=== PATIENT | male | born 1945 | race Caucasian/White ===

== ENCOUNTER 2018-07-31 05:10 | Inpatient (IN) | payer OTHER ==
[~2018-07-31] VITALS: Ht 157.5 cm; Wt 76.2 kg
--- NOTE | 2018-07-31 07:30 | NUR ---
MS RN NOTES PATIENT DIRECT ADMIT FROM [facility], ARRIVED VIA STRETCHER. REPORT RECEIVED FROM DARYA CARL. PATIENT AWAKE, ALERT AND ORIENTED X 4, VERBALLY RESPONSIVE AND RESPONDS TO VERBAL AND TACTILE STIMULI. NO ACUTE DISTRESS AT THIS TIME. NO CHANGES IN LOC. WITH CO FEELING DISCOMFORT IN HIS INNER RECTUM. SKIN ASSESSMENT DONE, NO REDNESS OR SWELLING NOTED ON RECTAL AREA. PATIENT ORIENTED TO UNIT, STAFF, PLAN OF CARE AND VERBALIZED UNDERSTANDING. DR DARLING MADE AWARE OF PATIENT ARRIVAL. WILL CONTINUE TO MONITOR. BED LOCKED AND IN LOW POSITION. BILATERAL UPPER SIDE RAILS UP AND LOCKED. CALL LIGHT WITHIN EASY REACH
[2018-07-31 08:00] VITALS: BP 94/60
[2018-07-31] MEDS ORDERED: MAG HYDROX/AL HYDROX/SIMETH 30 ML UDC PO PRN (12:00)
[2018-07-31] MEDS ORDERED: ZOLPIDEM TARTRATE 5 MG TABLET PO PRN (12:00)
[2018-07-31] MEDS ORDERED: MAGNESIUM HYDROXIDE 30 ML UDC PO PRN (12:00)
[2018-07-31] MEDS ORDERED: Z GUARD REMEDY 2 OZ OINT TP PRN (12:00)
[2018-07-31] MEDS ORDERED: HYDROCODONE/APAP 5/325MG 1 EACH TABLET PO PRN (12:00)
[2018-07-31] MEDS ORDERED: ONDANSETRON HCL/PF 4 MG/2 ML VIAL IVP PRN (12:00)
[2018-07-31] MEDS ORDERED: ACETAMINOPHEN 325 MG TABLET PO PRN (12:00)
[2018-07-31] MEDS: METRONIDAZOLE 500MG/ NS 100ML 500 MG in PREMIX 1 EA IV SCH ×3 (13:15→23:18)
[2018-07-31] MEDS: CIPROFLOXACIN IV RTU 400 MG in PREMIX 1 EA IV SCH (14:40)
[2018-07-31 16:00] VITALS: BP 95/58
--- NOTE | 2018-07-31 16:40 | NUR ---
MS RN NOTES PATIENT REPORTS HAVING BOWEL MOVEMENT EARLIER THIS AFTERNOON, ADDED THAT HE NOTED A SMALL AMOUNT OF PUS ON HIS STOOL. VERBALIZED THAT HE ALREADY FLUSHED AND IS NOT ABLE TO SHOW IT TO NURSING STAFF. DENIES BLEEDING AT THIS TIME. WILL CONTINUE TO MONITOR
--- NOTE | 2018-07-31 18:27 | NUR ---
MS RN NOTES PATIENT RESTING INSIDE ROOM. AWAKE, ALERT AND ORIENTED, VERBALLY RESPONSIVE AND RESPONDS TO VERBAL AND TACTILE STIMULI. NO ACUTE DISTRESS NOTED AT THIS TIME. DENIES ANY PAIN OR DISCOMFORT. PATIENT KEPT CLEAN, DRY AND COMFORTABLE. IV INTACT AND PATENT. WILL ENDORSE TO INCOMING SHIFT FOR RENETTA. BED LOCKED AND IN LOW POSITION. BILATERAL UPPER SIDE RAILS UP AND LOCKED. CALL LIGHT WITHIN EASY REACH
--- NOTE | 2018-07-31 19:30 | NUR ---
MS RN NOTE: PATIENT RESTING IN BED, NO ACUTE DISTRESS NOTED, FAMILY AT BEDSIDE. BREATHING EVEN AND UNLABORED, NO SOB NOTED. IV TO RAC IN PLACE. BED LOCKED AND IN LOWEST POSITION, CALL LIGHT IN REACH. WILL CONTINUE TO MONITOR.
[2018-07-31 20:00] VITALS: BP 105/59
[2018-08-01] MEDS: CIPROFLOXACIN IV RTU 400 MG in PREMIX 1 EA IV SCH ×2 (01:57→13:09)
--- NOTE | 2018-08-01 03:00 | NUR ---
MS RN NOTE: PATIENT SLEEPING IN BED, NO ACUTE DISTRESS NOTED. BREATHING EVEN AND UNLABORED, NO SOB NOTED. BED LOCKED AND IN LOWEST POSITION, CALL LIGHT IN REACH. WILL CONTINUE TO MONITOR.
[2018-08-01] MEDS: METRONIDAZOLE 500MG/ NS 100ML 500 MG in PREMIX 1 EA IV SCH ×4 (05:31→23:04)
--- NOTE | 2018-08-01 06:05 | NUR ---
MS RN NOTE: PATIENT RESTING IN BED, NO ACUTE DISTRESS NOTED, FAMILY AT BEDSIDE. BREATHING EVEN AND UNLABORED, NO SOB NOTED. IV TO RAC IN PLACE. BED LOCKED AND IN LOWEST POSITION, CALL LIGHT IN REACH. WILL ENDORSE TO DAY NURSE TO CONTINUE WITH PLAN OF CARE.
[2018-08-01 06:16] LABS: BASOPHILS % (AUTO) 0.6 % (0.0-2.0); HEMATOCRIT 42 % (39-51); HEMOGLOBIN 14.5 g/dL (13.5-17.5); LYMPHOCYTES # (AUTO) 1.5 /CMM (0.8-4.8); LYMPHOCYTES % (AUTO) 21.7 % (20.0-44.0); MEAN CORPUSCULAR HGB CONC 35 g/dl (31.0-36.0); MEAN CORPUSCULAR VOLUME 91 fL (80-96); MONOCYTES # (AUTO) 0.5 /CMM (0.1-1.30); MONOCYTES % (AUTO) 7.3 % (2.0-12.0); NEUTROPHILS # (AUTO) 4.6 /CMM (1.8-8.9); NEUTROPHILS % (AUTO) 67.4 % (43.0-81.0); PLATELET COUNT (AUTO) 215 /CMM (150-450); RED BLOOD CELL COUNT(AUTO) 4.57 MIL/uL (4.5-6.0); WHITE BLOOD COUNT (AUTO) 6.9 K/uL (4.3-11.0)
[2018-08-01 06:40] LABS: CHOLESTEROL 97 mg/dL (<200); HDL CHOLESTEROL 41 mg/dL (40-60); LDL 57 mg/dL (0-99); TRIGLYCERIDES 41 mg/dL (30-150)
[2018-08-01 06:46] LABS: CALCIUM, SERUM 8.2 mg/dL (8.5-10.1); CARBON DIOXIDE 26 mmol/L (21-32); CHLORIDE 107 mmol/L (98-107); CREATININE 0.9 mg/dL (0.6-1.3); GLUCOSE 120 mg/dL (74-106); MAGNESIUM 1.8 mg/dL (1.8-2.4); POTASSIUM 3.2 mmol/L (3.5-5.1); SODIUM SERUM 143 mmol/L (136-145); UREA NITROGEN, BLOOD 11 mg/dL (7-18)
--- NOTE | 2018-08-01 07:54 | NUR ---
MS RN NOTES PATIENT RECEIVED RESTING INSIDE ROOM. SLEEPING, EASILY AROUSABLE THROUGH VERBAL AND TACTILE STIMULI. PATIENT ALERT AND ORIENTED X 4. NO ACUTE DISTRESS. NO C/O PAIN AT THIS TIME. IV INTACT AND PATENT. SON AT BEDSIDE. WILL CONTINUE TO MONITOR. BED LOCKED AND IN LOW POSITION. BILATERAL UPPER SIDE RAILS UP AND LOCKED. CALL LIGHT WITHIN EASY REACH
[2018-08-01 08:00] VITALS: BP 100/54
[2018-08-01] MEDS: POTASSIUM CHLORIDE 20 MEQ TAB.PRT.SR PO SCH ×2 (10:37→11:15)
[2018-08-01] MEDS ORDERED: MAGNESIUM HYDROXIDE 30 ML UDC PO PRN (14:30)
[2018-08-01] MEDS: DOCUSATE SODIUM 100 MG CAPSULE PO SCH (15:06)
[2018-08-01 15:59] VITALS: BP 124/70
--- NOTE | 2018-08-01 18:36 | NUR ---
MS RN NOTES PATIENT RESTING INSIDE ROOM. AWAKE, ALERT AND ORIENTED, VERBALLY RESPONSIVE AND RESPONDS TO VERBAL AND TACTILE STIMULI. BREATHING EVEN AND UNLABORED. NO ACUTE DISTRESS NOTED. PATIENT CALM AND RELAXED. IV INFUSING WELL. PATIENT KEPT CLEAN, DRY AND COMFORTABLE. WILL ENDORSE TO INCOMING SHIFT FOR RENETTA. BED LOCKED AND IN LOW POSITION. BILATERAL UPPER SIDE RAILS UP AND LOCKED. CALL LIGHT WITHIN EASY REACH
--- NOTE | 2018-08-01 19:06 | NUR ---
MS RN OPENING NOTES: RECEIVED PT ON ROOM AIR AND IS TOLERATING WELL. FAMILY MEMBER AT BEDSIDE. NO SOB NOTED. NO S/S OF DISTRESS. PT HAS IV AND IS BEING INFUSED WITH IV ABX AT THIS TIME. PT TONGAN SPEAKING ONLY. PT A/OX4. BED KEPT IN LOW, LOCKED POSITION, AND SIDE RAILS X 2UP. WILL CONTINUE TO MONITOR PT.
--- NOTE | 2018-08-01 19:35 | NUR ---
MS CARL NOTES: DR. BURKETT AT BEDSIDE. Addendum: 08/01/18 at 2047 by ERIN PATEL RN PER DR. BURKETT, HE WILL REVIEW CHART.
[2018-08-01 20:14] VITALS: BP 106/57
[2018-08-02] MEDS: CIPROFLOXACIN IV RTU 400 MG in PREMIX 1 EA IV SCH ×2 (01:02→14:51)
[2018-08-02] MEDS: METRONIDAZOLE 500MG/ NS 100ML 500 MG in PREMIX 1 EA IV SCH ×4 (05:05→23:20)
--- NOTE | 2018-08-02 06:01 | NUR ---
MS RN CLOSING NOTES: ALL NEEDS WERE ATTENDED AND ANTICIPATED FOR. PT ASLEEP AT THIS TIME RESTING COMFORTABLY. PT HAS IV AND IS BEING INFUSED WITH FLAGYL 100ML/HR AT THIS TIME. FRIEND AT BEDSIDE. NO SOB NOTED. NO COMPLAINTS OF PAIN. BED KEPT IN LOW, LOCKED POSITION, AND SIDE RAILS X 2UP. WILL ENDORSE TO AM NURSE FOR RENETTA.
[2018-08-02 06:43] LABS: CALCIUM, SERUM 8.3 mg/dL (8.5-10.1); CARBON DIOXIDE 27 mmol/L (21-32); CHLORIDE 108 mmol/L (98-107); CREATININE 0.9 mg/dL (0.6-1.3); GLUCOSE 118 mg/dL (74-106); POTASSIUM 3.6 mmol/L (3.5-5.1); SODIUM SERUM 144 mmol/L (136-145); UREA NITROGEN, BLOOD 11 mg/dL (7-18)
--- NOTE | 2018-08-02 07:30 | NUR ---
RN OPENING NOTES RECEIVED PATIENT RESTING INSIDE ROOM. SLEEPING, EASILY AROUSABLE THROUGH VERBAL AND TACTILE STIMULI. PATIENT ALERT AND ORIENTED X 4. ABLE TO MAKE NEEDS KNOWN. NO ACUTE DISTRESS. NO C/O PAIN AT THIS TIME. IV INTACT AND PATENT. KEPT PAIENT SAFE AND COMFORTABLE. SON AT BEDSIDE. BED LOCKED AND IN LOW POSITION. BILATERAL UPPER SIDE RAILS UP AND LOCKED. CALL LIGHT WITHIN EASY REACH. WILL CONTINUE TO MONITOR ACCORDINGLY
[2018-08-02 08:00] VITALS: BP 98/60
[2018-08-02] MEDS: DOCUSATE SODIUM 100 MG CAPSULE PO SCH (08:03)
--- NOTE | 2018-08-02 13:35 | NUR ---
FLAGYL WAS GIVEN 1200 SCHEDULED. SCANNED WASNT REGISTERED DUE TO COMPUTER RAN OUT OF BATTERY. LATE SCANNED NOTED AT 1335.
[2018-08-02 16:00] VITALS: BP 99/56
--- NOTE | 2018-08-02 18:00 | NUR ---
RN NOTES DR BURKETT MADE ROUNDS FOR CONSULT. PER MD, PATIENT NEEDED SURGICAL CONSULT
--- NOTE | 2018-08-02 19:07 | NUR ---
RN CLOSING NOTES PATIENT IN STABLE CONDITION. ALL NEEDS ATTENDED AND PROVIDED. ALL DUE MEDICATIONS ADMINISTERED, ORDERED. KEPT SAFE AND COMFORTABLE. BED IN LOW/LOCKED POSITION, SIDERAILS UPX2, CALL LIGHT IN REACH. ENDORSED TO NIGHT RN FOR RENETTA.
--- NOTE | 2018-08-02 19:30 | NUR ---
RECEIVED PATIENT IN BED AWAKE. AO X 3, ABLE TO MAKE NEEDS KNOWN. NO ACUTE DISTRESS NOTED. DENIES ANY PAIN AT THIS TIME. IV SITE PATENT, INTACT; FLUSHED. SAFETY REMINDERS GIVEN. ON LOW BED WITH BILATERAL UPPER SIDE RAILS UP. CALL [place] WITHIN EASY REACH. WILL CONTINUE TO MONITOR.
[2018-08-02 20:00] VITALS: BP 113/73
[2018-08-03] MEDS: CIPROFLOXACIN IV RTU 400 MG in PREMIX 1 EA IV SCH (01:42)
[2018-08-03] MEDS: METRONIDAZOLE 500MG/ NS 100ML 500 MG in PREMIX 1 EA IV SCH ×2 (05:42→11:53)
--- NOTE | 2018-08-03 06:00 | NUR ---
PATIENT ASLEEP, EASILY AROUSABLE. RESPIRATIONS EVEN. NO SIGNS OF PAIN NOTED. DUE MEDS GIVEN WITH NO ASE NOTED. NEEDS ATTENDED. SAFETY PRECAUTIONS AND COMFORT MEASURES IN PLACE. WILL GIVE REPORT TO DAY SHIFT FOR CONTINUITY OF CARE.
--- NOTE | 2018-08-03 07:00 | NUR ---
RN OPENING NOTES RECEIVED PATIENT RESTING INSIDE ROOM. SLEEPING, EASILY AROUSABLE THROUGH VERBAL AND TACTILE STIMULI. PATIENT ALERT AND ORIENTED X 4. ABLE TO MAKE NEEDS KNOWN. NO ACUTE DISTRESS. NO C/O PAIN AT THIS TIME. IV INTACT AND PATENT. KEPT PATIENT SAFE AND COMFORTABLE. SON AT BEDSIDE. BED LOCKED AND IN LOW POSITION. BILATERAL UPPER SIDE RAILS UP AND LOCKED. CALL LIGHT WITHIN EASY REACH. WILL CONTINUE TO MONITOR ACCORDINGLY
[2018-08-03 08:00] VITALS: BP 105/55
[2018-08-03] MEDS: DOCUSATE SODIUM 100 MG CAPSULE PO SCH (08:37)
--- NOTE | 2018-08-03 09:54 | NUR ---
DR BURKETT MADE ROUNDS FOR GI CONSULT. PER MD, PLACE PATIENT ON CLEAR LIQUID DIET, WILL DO COLONOSCOPY TOMORROW, GOLYTELY TO START AT 2000 TONIGHT, AND NPO AFTER MIDNIGHT. MD WILL PUT ORDERS
[2018-08-03] MEDS: CIPROFLOXACIN HCL 500 MG TABLET PO SCH (14:34)
[2018-08-03 16:00] VITALS: BP 105/61
[2018-08-03] MEDS: METRONIDAZOLE 500 MG TABLET PO SCH ×2 (17:31→23:15)
--- NOTE | 2018-08-03 19:30 | NUR ---
RN CLOSING NOTES PATIENT IN STABLE CONDITION. SON AT BEDSIDE. ALL NEEDS ATTENDED AND PROVIDED. ALL DUE MEDICATIONS ADMINISTERED ORDERED. KEPT SAFE AND COMFORTABLE. BED IN LOW/LOCKED POSITION, SIDERAILS UPX2, CALL LIGHT IN REACH. ENDORSED TO NIGHT RN FOR RENETTA.
[2018-08-03 20:00] VITALS: BP 130/81
[2018-08-03] MEDS ORDERED: PEG 3350/NA SULF,BICARB,CL/KCL 4,000 ML BOTTLE PO ONE (20:00)
--- NOTE | 2018-08-03 23:56 | NUR ---
DR. BURKETT VERIFIED THAT PATIENT WILL TAKE SORBITOL PO AT 0600 08/04/18. PATIENT WILL STILL BE ORDERED NPO PAST MIDNIGHT.
[2018-08-04] MEDS: CIPROFLOXACIN HCL 500 MG TABLET PO SCH ×2 (01:13→14:46)
[2018-08-04] MEDS ORDERED: SORBITOL SOLUTION 30 ML PO SCH (06:00)
--- NOTE | 2018-08-04 06:00 | NUR ---
PATIENT ASLEEP, EASILY AROUSABLE. RESPIRATIONS EVEN. NO SIGNS OF PAIN NOTED. DUE MEDS GIVEN WITH NO ASE NOTED. NPO SINCE MIDNIGHT. SORBITOL PO GIVEN ORDERED BY DR. BURKETT. NEEDS ATTENDED. SAFETY PRECAUTIONS AND COMFORT MEASURES IN PLACE. WILL GIVE REPORT TO DAY SHIFT FOR CONTINUITY OF CARE.
[2018-08-04] MEDS ORDERED: SORBITOL SOLUTION 30 ML ONE ×2 (06:03→06:07)
[2018-08-04] MEDS: METRONIDAZOLE 500 MG TABLET PO SCH ×2 (06:13→12:12)
--- NOTE | 2018-08-04 07:15 | NUR ---
MS/RN OPENING NOTE THE PATIENT ALERT AND ORIENTED X3. DENIES PAIN. IN ROOM AIR AND DENIES SOB. RESPIRATION REGULAR AND UNLABORED. THE PATIENT REMAINS NPO. HOA G 18 PATENT AND SALINE LOCKED. BED LOW AND LOCKED. SIDE RAILS UP X2. CALL LIGHT WITHIN REACH. WILL CONTINUE TO MONITOR.
[2018-08-04 08:00] VITALS: BP 94/64
[2018-08-04] MEDS: DOCUSATE SODIUM 100 MG CAPSULE PO SCH (08:04)
--- NOTE | 2018-08-04 15:00 | NUR ---
MS/RN NOTE THE PATIENT ALERT AND ORIENTED X3. IN ROOM AIR AND DENIES SOB. RESPIRATION REGULAR AND UNLABORED. DENIES PAIN. THE PATIENT IN NO APPARENT DISTRESS. THE PATIENT WAS CLEARED BY DR BURKETT AND VIKKI JACKSON. DISCHARGE EDUCATION PROVIDED AND HE VERBALIZED UNDERSTANDING. THE PATIENT IS REMINDED TO MAKE UP APPT COLORECTAL SURGEON. THE PATIENT VERBALIZED UNDERSTANDING. LINOLEUM LAYER BY SON ON A PRIVATE CAR.
== END 2018-08-04 17:13 | disposition home or self-care (01) | DRG 254 ==
LOC: MEDSG2 07:10
PROVIDERS: ADMIT Family Medicine; ATTEND Internal Medicine
PROC: 0DJD8ZZ Inspection of Lower Intestinal Tract, Via Natural or Artificial Opening Endoscopic (ICD-10-PCS; principal; 2018-08-04)
DX: K62.89 Other specified diseases of anus and rectum (principal); E83.51 Hypocalcemia; K62.6 Ulcer of anus and rectum; K61.1 Rectal abscess; D72.829 Elevated white blood cell count, unspecified; E87.6 Hypokalemia; F17.210 Nicotine dependence, cigarettes, uncomplicated; E66.9 Obesity, unspecified; Z68.31 Body mass index [BMI] 31.0-31.9, adult
CPT/HCPCS: 36415; 80048-TC; 80061-TC; 83735-TC; 84100-TC; 85025-TC; 85610-TC; 85730-TC; 86850-TC; 87081-TC; A4216; G0378; J0744; J3490; J7050